=== PATIENT | female | born 1960 | race Caucasian/White ===

== ENCOUNTER 2017-01-13 11:40 | Outpatient (CLI) | payer OTHER ==
--- OUTSIDE RECORDS SUMMARY | 2017-01-13 13:03 | XMS | Clinical Summary ---
:1960 Author Organization [facility] Address [address] [place] [address] Phone Care Team Providers Name Role Phone , Primary Care Provider Unavailable Allergies Not on File Current Medications Not on file Active Problems Not on file Social History Tobacco Use Types Packs/Day Years Used Date Never Assessed Sex Assigned at Date Recorded Not on file Last Filed Vital Signs Not on file Plan of Treatment Not on file Results Not on filefrom Last 3 Months
--- OUTSIDE RECORDS SUMMARY | 2017-01-13 13:03 | XMS | Clinical Summary ---
:1960 Author Organization [facility] Address [address] [place] [address] Phone Care Team Providers Name Role Phone , Primary Care Provider Unavailable Allergies No Known Allergies Current Medications Prescription Sig. Disp. Refills Start Date End Date Status progesterone Take 50 mg by mouth Active (PROMETRIUM) 100 MG nightly . capsule Missing or Non-Formulary Apply 0.375 mg Active Medication topically twice a week Estrogen patch-Friday's and Friday's. Active Problems Problem Noted Date Cyst of right ovary 12/12/2014 Ovarian cystic mass 12/12/2014 Ovarian cyst 12/12/2014 Social History Tobacco Use Types Packs/Day Years Used Date Never Smoker Smokeless Tobacco: Never Used Alcohol Use Drinks/Week oz/Week Comments No Sex Assigned at Date Recorded Not on file Last Filed Vital Signs Vital Sign Reading Time Taken Blood Pressure 122/82 12/13/2014 8:08 AM CDT Pulse 52 12/13/2014 8:08 AM CDT Temperature 36.7 C (98.1 F) 12/13/2014 8:08 AM CDT Respiratory Rate 18 12/13/2014 8:08 AM CDT Oxygen Saturation 99% 12/13/2014 8:08 AM CDT Inhaled Oxygen Concentration - - Weight 47.2 kg (104 lb) 12/12/2014 7:32 AM CDT Height 168.9 cm (5' 6.5") 12/12/2014 7:32 AM CDT Body Mass Index 16.54 12/12/2014 7:32 AM CDT Plan of Treatment Not on file Results Not on filefrom Last 3 Months
== END 2017-01-13 11:41 | disposition home or self-care (01) ==
LOC: CTENTCT 11:40
PROVIDERS: ATTEND Otolaryngology Plastic Surgery within the Head & Neck
DX: J32.8 Other chronic sinusitis (principal)
CPT/HCPCS: 70486

== ENCOUNTER 2017-01-15 09:38 | Outpatient (CLI) | payer OTHER ==
--- OUTSIDE RECORDS SUMMARY | 2017-01-15 10:46 | XMS | Clinical Summary ---
:1960 Author Organization [facility] Address [address] [place] [address] Phone Care Team Providers Name Role Phone [...]
--- NOTE | 2017-01-15 11:33 | BD ---
DEXA BONE DENSITY SCAN: Date: 01-15-17 Comparison: None. History: 56-year-old post-menopausal female undergoing screening for osteoporosis. Lumbar Spine: BMD (g/cm2) L1 0.983 T-Score: -0.1 L2 1.082 T-Score: 0.5 L3 1.267 T-Score: 1.7 L4 1.350 T-Score: 2.6 L1-L4 1.181 T-Score: 1.2 Femoral Neck: 1.067 T-Score: 2.0 Total Femur: 1.091 T-Score: 1.2 The WHO-FRAX fracture risk assessment is not provided as all T-Scores are at or above -1.0. Impression: Normal bone mineral density exam. POS: PUNEET
== END 2017-01-15 09:39 | disposition home or self-care (01) ==
LOC: MAMMO 09:38
PROVIDERS: ATTEND Internal Medicine
DX: Z78.0 Asymptomatic menopausal state (principal)
CPT/HCPCS: 77080

== ENCOUNTER 2017-02-24 13:56 | Outpatient (CLI) | payer OTHER ==
--- NOTE | 2017-02-24 19:34 | MRI ---
MRI BRAIN WITHOUT CONTRAST: Technique: Multiplanar, multisequential imaging of the brain obtained. History: Memory loss. Confusion. FINDINGS: Ventricles have normal size and position. There are mild chronic ischemic white matter changes seen i n both cerebral hemispheres. No evidence of restricted diffusion. No mass or edema. Cerebral arteries show normal flow void. Paranasal sinuses and mastoids are clear. IMPRESSION: There are scattered white matter hyperintensities in the subcortical and deep white matter of both ce rebral hemispheres. These white matter lesions are nonspecific but most likely related to microvascul ar ischemic changes. Recommend clinical correlation regarding predisposing fractures such as hyperten casey and diabetes. POS: PUNEET
== END 2017-02-24 13:57 | disposition home or self-care (01) ==
LOC: EEG 13:56
PROVIDERS: ATTEND Student in an Organized Health Care Education/Training Program
DX: R51 Headache (principal); R41.3 Other amnesia
CPT/HCPCS: 70551; 95816

== ENCOUNTER 2018-12-07 15:34 | Outpatient (CLI) | payer OTHER ==
--- NOTE | 2018-12-07 16:08 | RAD ---
Right hip 2 views HISTORY: Right hip pain. FINDINGS: Mild joint space narrowing and osteophytosis. Femoral head contour is maintained. No acute fracture, dislocation, or aggressive osseous erosions. Mild degenerative changes of the right sacroiliac joint. IMPRESSION: Mild osteoarthritic changes. No acute osseous abnormalities are demonstrated.
== END 2018-12-07 15:35 | disposition home or self-care (01) ==
LOC: SCSRAD 15:34
PROVIDERS: ATTEND Physician Assistant
DX: M25.551 Pain in right hip (principal); M16.11 Unilateral primary osteoarthritis, right hip

== ENCOUNTER 2020-04-17 16:16 | Outpatient (CLI) | payer BC ==
--- NOTE | 2020-04-17 16:33 | RAD ---
XR Cerv Sp Ap Lat STANDARD HISTORY: Neck pain. FINDINGS: No fracture or subluxation is identified. Degenerative changes are present. There is loss of cervical lordosis with mild reversal. An MRI would be helpful to evaluate for radiculopathy or myelopathy.
== END 2020-04-17 16:17 | disposition home or self-care (01) ==
LOC: BICRAD 16:16
PROVIDERS: ATTEND Internal Medicine
DX: M54.2 Cervicalgia (principal)
CPT/HCPCS: 72040

== ENCOUNTER 2020-08-08 15:44 | Outpatient (CLI) | payer BC | END 2020-08-08 15:45 | disposition home or self-care (01) | LOC: CTENTCT 15:44 | PROVIDERS: ATTEND Otolaryngology Plastic Surgery within the Head & Neck | DX: J32.9 Chronic sinusitis, unspecified (principal) | CPT/HCPCS: 70486 ==

== ENCOUNTER → 2020-12-21 | Outpatient (CLI) | payer BC ==
[2020-12-22 08:32] LABS: SARS-CoV-2 PCR by NAA Not Detected (NotDetected)
== END ==
LOC: LABBT 08:00
PROVIDERS: ATTEND Orthopaedic Surgery Hand Surgery
DX: Z01.812 Encounter for preprocedural laboratory examination (principal); Z20.822 Contact with and (suspected) exposure to COVID-19
CPT/HCPCS: U0003; U0005

== ENCOUNTER → 2020-12-26 | Day surgery (SDC) | payer BC | LOC: ENDO/OP 07:29 | PROVIDERS: ATTEND Surgery | DX: K21.9 Gastro-esophageal reflux disease without esophagitis (principal); E03.9 Hypothyroidism, unspecified; Z79.899 Other long term (current) drug therapy | CPT/HCPCS: 91010 ==

== ENCOUNTER 2021-05-04 08:16 | Outpatient (CLI) | payer BC ==
[2021-05-04 18:25] LABS: SARS-CoV-2 PCR by NAA Not Detected (NotDetected)
== END 2021-05-04 08:17 | disposition home or self-care (01) ==
LOC: LABBT 08:16
PROVIDERS: ATTEND Internal Medicine
DX: Z01.812 Encounter for preprocedural laboratory examination (principal); Z20.822 Contact with and (suspected) exposure to COVID-19
CPT/HCPCS: U0003; U0005

== ENCOUNTER → 2021-05-09 | Day surgery (SDC) | payer BC | LOC: SDC 07:40 | PROVIDERS: ATTEND Internal Medicine | DX: K21.9 Gastro-esophageal reflux disease without esophagitis (principal); Z53.9 Procedure and treatment not carried out, unspecified reason ==

== ENCOUNTER 2021-06-15 07:09 | Outpatient (CLI) | payer BC ==
[2021-06-15 18:46] LABS: SARS-CoV-2 PCR by NAA Not Detected (NotDetected)
== END 2021-06-15 07:10 | disposition home or self-care (01) ==
LOC: LABBT 07:09
PROVIDERS: ATTEND Internal Medicine
DX: Z20.822 Contact with and (suspected) exposure to COVID-19 (principal)
CPT/HCPCS: U0003; U0005

== ENCOUNTER 2022-03-13 07:53 | Outpatient (CLI) | payer BC ==
[2022-03-13] MEDS ORDERED: Iopamidol-370 76% 500 ML 1 ML ONE (12:46)
== END 2022-03-13 07:54 | disposition home or self-care (01) ==
LOC: BICCT 07:53
PROVIDERS: ATTEND Internal Medicine
DX: J92.9 Pleural plaque without asbestos (principal)
CPT/HCPCS: 71260; Q9967

== ENCOUNTER 2022-05-24 13:38 | Outpatient (CLI) | payer BC | END 2022-05-24 13:39 | disposition home or self-care (01) | LOC: BICMAMMO 13:38 | PROVIDERS: ATTEND Obstetrics & Gynecology | DX: N64.4 Mastodynia (principal); R92.8 Other abnormal and inconclusive findings on diagnostic imaging of breast; R92.1 Mammographic calcification found on diagnostic imaging of breast | CPT/HCPCS: 77066; G0279 ==

== ENCOUNTER 2022-06-18 15:11 | Outpatient (CLI) | payer BC | END 2022-06-18 15:12 | disposition home or self-care (01) | LOC: BICMAMMO 15:11 | PROVIDERS: ATTEND Obstetrics & Gynecology | DX: Z13.820 Encounter for screening for osteoporosis (principal) | CPT/HCPCS: 77080 ==

== ENCOUNTER 2023-01-30 10:54 | Outpatient (CLI) | payer BC | END 2023-01-30 10:55 | disposition home or self-care (01) | LOC: BICRAD 10:54 | PROVIDERS: ATTEND Internal Medicine | DX: M54.42 Lumbago with sciatica, left side (principal); M25.552 Pain in left hip | CPT/HCPCS: 72100 ==

== ENCOUNTER 2023-02-11 11:40 | Outpatient (CLI) | payer BC | END 2023-02-11 11:41 | disposition home or self-care (01) | LOC: BICRAD 11:40 | PROVIDERS: ATTEND Internal Medicine | DX: R05.1 Acute cough (principal) | CPT/HCPCS: 71046 ==

== ENCOUNTER 2023-08-20 10:01 | Outpatient (CLI) | payer BC | END 2023-08-20 10:02 | disposition home or self-care (01) | LOC: SCSMRI 10:01 | PROVIDERS: ATTEND Nurse Practitioner Family | DX: M54.16 Radiculopathy, lumbar region (principal); M48.061 Spinal stenosis, lumbar region without neurogenic claudication; M47.817 Spondylosis without myelopathy or radiculopathy, lumbosacral region | CPT/HCPCS: 72158 ==

== ENCOUNTER 2023-09-03 14:49 | Outpatient (CLI) | payer BC | END 2023-09-03 14:50 | disposition home or self-care (01) | LOC: BICMAMMO 14:49 | PROVIDERS: ATTEND Obstetrics & Gynecology | DX: Z13.820 Encounter for screening for osteoporosis (principal) | CPT/HCPCS: 77080 ==

== ENCOUNTER 2024-03-03 09:10 | Outpatient (CLI) | payer MEDICARE | END 2024-03-03 09:11 | disposition home or self-care (01) | LOC: RAD 09:10 | PROVIDERS: ATTEND Internal Medicine Critical Care Medicine | DX: R06.00 Dyspnea, unspecified (principal) | CPT/HCPCS: 71046 ==

== ENCOUNTER 2024-04-16 09:20 | Outpatient (CLI) | payer MEDICARE | END 2024-04-16 09:21 | disposition home or self-care (01) | LOC: SCSMRI 09:20 | PROVIDERS: ATTEND Family Medicine | DX: M47.26 Other spondylosis with radiculopathy, lumbar region (principal); M51.16 Intervertebral disc disorders with radiculopathy, lumbar region; M48.061 Spinal stenosis, lumbar region without neurogenic claudication; M43.16 Spondylolisthesis, lumbar region; M48.05 Spinal stenosis, thoracolumbar region; M48.07 Spinal stenosis, lumbosacral region; G96.191 Perineural cyst | CPT/HCPCS: 72148 ==